=== PATIENT | female | born 1995 | race Caucasian/White ===

== ENCOUNTER 2020-01-28 18:29 | Emergency (ER) | payer OTHER ==
[2020-01-28] MEDS ORDERED: Zofran 4 MG/2 ML VIAL IV ONE (19:10)
[2020-01-28] MEDS ORDERED: TORAdol 30 mg Injection IV ONE (19:10)
--- NOTE | 2020-01-28 19:10 | ERPHSYRPT ---
- History of Present Illness Time Seen by Provider: 01/28/20 19:03 Historian: patient Exam Limitations: no limitations Patient Subjective Stated Complaint: Pt began having LRQ pain Wednesday and all day today she has felt like she needed to have a bowel movement but unsuccessful, pt sat on the toilet and instantly felt pain that went all over her abdomen but the most pain is still in the LRQ Triage Nursing Assessment: Pt drove self to the ER, tachycardic, rebound pain to RLQ, rates pain 6/10, bowel sounds heard in all 4 quadrants Physician History: Two days ago pt started with intermittent sharp RLQ abdominal pain and nausea which today has lasted for 16 hours. LBM was yesterday & soft without blood. Pt denies chest pain, shortness of air, fever, vomiting. Allergies/Adverse Reactions: No Known Drug Allergies Allergy (Verified 01/28/20 18:47) Home Medications: Levomefolate Calcium [l-Methylfolate] 15 mg PO DAILY 01/28/20 [History] Levonorgestrel-Ethin Estradiol [Falmina-28 Tablet] 1 each PO DAILY 01/28/20 [History] Palmer-3 Fatty Acids [Palmer-3] 1,000 mg PO DAILY 01/28/20 [History] Phentermine HCl [Adipex-P] 37.5 mg PO DAILY 01/28/20 [History] Topiramate 50 mg PO HS 01/28/20 [History] Venlafaxine HCl [Venlafaxine HCl ER] 150 mg PO DAILY 01/28/20 [History] Travel Risk - International Travel Have you traveled outside of the country in past 3 weeks: No - Coronavirus Screening Are you exhibiting any of the following symptoms?: No Close contact with a COVID-19 positive Pt in past 14-21 Days: No - Review of Systems Constitutional: No Fever Ears, Nose, & Throat: No Ear Pain, No Throat Pain Respiratory: No Dyspnea Cardiac: No Chest Pain Abdominal/Gastrointestinal: Abdominal Pain, Nausea, No Vomiting, No Diarrhea Skin: No Rash All Other Systems: Reviewed and Negative - Past Medical History Pertinent Past Medical History: Yes Female Reproductive Disorders: Endometriosis Other Medical History: kidney stone - Past Surgical History Past Surgical History: Yes Gastrointestinal: Cholecystectomy Female Surgical History: Section - Social History Smoking Status: Former smoker Exposure to second hand smoke: No Drug Use: none Patient Lives Alone: No - Female History Hx Last Menstrual Period: 01/10/2020 Hx Now: No - Nursing Vital Signs Nursing Vital Signs: Initial Vital Signs Temperature 98.2 F 01/28/20 18:37 Pulse Rate 104 H 01/28/20 18:37 Blood Pressure 109/79 01/28/20 18:37 O2 Sat by Pulse Oximetry 98 01/28/20 18:37 Pain Scale Pain Intensity 6 - Physical Exam General Appearance: alert Eye Exam: PERRL/EOMI Ears, Nose, Throat Exam: pharynx normal Neck Exam: normal inspection Respiratory Exam: lungs clear Cardiovascular Exam: normal heart sounds Gastrointestinal/Abdomen Exam: normal bowel sounds, tenderness (Moderate RLQ & Suprapubic tenderness.) Back Exam: normal inspection Extremity Exam: No pedal edema Neurologic Exam: alert, cooperative Skin Exam: warm, dry SpO2 Interpretation: normal SpO2: 98 O2 Delivery: Room Air - Course Nursing assessment & vital signs reviewed: Yes - CT Exams Abdomen/Pelvis CT Interpretation: Tele-radiologist Report (No evidence of acute intra-abdominal or pelvic pathology. Increased fecal retention in the rectosigmoid colon. See rest of report.) - Radiology Ultrasound Exam Pelvis Ultrasound: Other (Tech report: no ovarian torsion.) Ordered Tests: Active Orders 24 hr Category Date Time Status IV Insertion STAT Care 01/28/20 19:10 Active ABDOMEN AND PELVIS W/0 CONTRAS [CT] Stat Exams 01/28/20 19:11 Taken PELVIC [US] Stat Exams 01/28/20 20:32 Ordered AMYLASE Stat Lab 01/28/20 19:29 Completed CBC W DIFF Stat Lab 01/28/20 19:29 Completed CMP Stat Lab 01/28/20 19:29 Completed HCG QUALITATIVE,SERUM Stat Lab 01/28/20 19:29 Completed LIPASE Stat Lab 01/28/20 19:29 Completed UA W/RFX UR CULTURE Stat Lab 01/28/20 19:29 Completed Medication Summary Generic Name Dose Route Start Last Admin Trade Name Freq PRN Reason Stop Dose Admin Sodium Chloride 1,000 mls @ 100 mls/hr 01/28/20 19:15 01/28/20 19:22 Sodium Chloride 0.9% 1000 Ml IV 02/27/20 19:14 100 mls/hr .Q10H LM Administration Discontinued Medications Generic Name Dose Route Start Last Admin Trade Name Freq PRN Reason Stop Dose Admin Acetaminophen 650 mg 01/28/20 20:31 01/28/20 20:38 Tylenol 325 Mg PO 01/28/20 20:32 650 mg STAT ONE Administration Acetaminophen Confirm 01/28/20 20:37 Tylenol 325 Mg Administered 01/28/20 20:38 Dose 650 mg .ROUTE .STK-MED ONE Ketorolac Tromethamine 30 mg 01/28/20 19:10 01/28/20 19:24 Toradol 30 Mg Injection IV 01/28/20 19:11 30 mg STAT ONE Administration Ketorolac Tromethamine Confirm 01/28/20 19:18 Toradol 30 Mg Injection Administered 01/28/20 19:19 Dose 30 mg .ROUTE .STK-MED ONE Ondansetron HCl 4 mg 01/28/20 19:10 01/28/20 19:23 Zofran 4 Mg/2 Ml Vial IV 01/28/20 19:11 4 mg STAT ONE Administration Ondansetron HCl Confirm 01/28/20 19:18 Zofran 4 Mg/2 Ml Vial Administered 01/28/20 19:19 Dose 4 mg .ROUTE .STK-MED ONE Lab/Rad Data: Laboratory Result Diagrams 01/28/20 19:29 01/28/20 19:29 Laboratory Results 01/28/20 01/28/20 01/28/20 Range/Units 19:29 19:29 19:29 WBC (4.0-10.5) K/mm3 RBC (4.1-5.4) M/mm3 Hgb (12.0-16.0) gm/dl Hct (35-47) % MCV (78-100) fl MCH (26-32) pg MCHC (32-36) g/dl RDW (11.5-14.0) % Plt Count (150-450) K/mm3 MPV (7.5-11.0) fl Gran % (36.0-66.0) % Eos # (Auto) (0-0.5) Absolute Lymphs (auto) (1.0-4.6) Absolute Monos (auto) (0.0-1.3) Lymphocytes % (24.0-44.0) % Monocytes % (0.0-12.0) % Eosinophils % (0.00-5.0) % Basophils % (0.0-0.4) % Absolute Granulocytes (1.4-6.9) Basophils # (0-0.4) Sodium 137 (137-145) mmol/L Potassium 4.4 (3.5-5.1) mmol/L Chloride 108 H (98-107) mmol/L Carbon Dioxide 25 (22-30) mmol/L Anion Gap 9.3 (5-15) MEQ/L BUN 10 (7-17) mg/dL Creatinine 0.96 (0.52-1.04) mg/dL Estimated GFR > 60.0 ML/MIN Glucose 94 (74-106) mg/dL Calcium 9.3 (8.4-10.2) mg/dL Total Bilirubin 0.80 (0.2-1.3) mg/dL AST 23 (14-36) U/L ALT 14 (0-35) U/L Alkaline Phosphatase 81 (38-126) U/L Serum Total Protein 7.0 (6.3-8.2) g/dL Albumin 4.2 (3.5-5.0) g/dL Amylase 42 (30-110) U/L Lipase 51 (23-300) U/L Serum , Qual NEGATIVE (Negative) Urine Color YELLOW (YELLOW) Urine Appearance SLIGHTLY CLOUDY (CLEAR) Urine pH 6.0 (5-6) Ur Specific [place] 1.028 (1.005-1.025) Urine Protein 30 (Negative) Urine Ketones NEGATIVE (NEGATIVE) Urine Blood NEGATIVE (0-5) Charlie/ul Urine Nitrite NEGATIVE (NEGATIVE) Urine Bilirubin NEGATIVE (NEGATIVE) Urine Urobilinogen NEGATIVE (0-1) mg/dL Ur Leukocyte Esterase NEGATIVE (NEGATIVE) Urine WBC (Auto) 0-2 (0-5) /HPF Urine RBC (Auto) NONE (0-2) /HPF U Hyaline Cast (Auto) 3-5 (0-2) /LPF U Epithel Cells (Auto) RARE (FEW) /HPF Urine Bacteria (Auto) NONE SEEN (NEGATIVE) /HPF Urine Mucus (Auto) MANY (NEGATIVE) /HPF Urine Culture Reflexed NO (NO) Urine Glucose NEGATIVE (NEGATIVE) mg/dL 01/28/20 Range/Units 19:29 WBC 5.2 (4.0-10.5) K/mm3 RBC 4.38 (4.1-5.4) M/mm3 Hgb 12.7 (12.0-16.0) gm/dl Hct 39.2 (35-47) % MCV 89.5 (78-100) fl MCH 29.0 (26-32) pg MCHC 32.4 (32-36) g/dl RDW 13.7 (11.5-14.0) % Plt Count 223 (150-450) K/mm3 MPV 10.8 (7.5-11.0) fl Gran % 57.7 (36.0-66.0) % Eos # (Auto) 0.06 (0-0.5) Absolute Lymphs (auto) 1.62 (1.0-4.6) Absolute Monos (auto) 0.51 (0.0-1.3) Lymphocytes % 31.0 (24.0-44.0) % Monocytes % 9.8 (0.0-12.0) % Eosinophils % 1.1 (0.00-5.0) % Basophils % 0.4 (0.0-0.4) % Absolute Granulocytes 3.02 (1.4-6.9) Basophils # 0.02 (0-0.4) Sodium (137-145) mmol/L Potassium (3.5-5.1) mmol/L Chloride (98-107) mmol/L Carbon Dioxide (22-30) mmol/L Anion Gap (5-15) MEQ/L BUN (7-17) mg/dL Creatinine (0.52-1.04) mg/dL Estimated GFR ML/MIN Glucose (74-106) mg/dL Calcium (8.4-10.2) mg/dL Total Bilirubin (0.2-1.3) mg/dL AST (14-36) U/L ALT (0-35) U/L Alkaline Phosphatase (38-126) U/L Serum Total Protein (6.3-8.2) g/dL Albumin (3.5-5.0) g/dL Amylase (30-110) U/L Lipase (23-300) U/L Serum , Qual (Negative) Urine Color (YELLOW) Urine Appearance (CLEAR) Urine pH (5-6) Ur Specific [place] (1.005-1.025) Urine Protein (Negative) Urine Ketones (NEGATIVE) Urine Blood (0-5) Charlie/ul Urine Nitrite (NEGATIVE) Urine Bilirubin (NEGATIVE) Urine Urobilinogen (0-1) mg/dL Ur Leukocyte Esterase (NEGATIVE) Urine WBC (Auto) (0-5) /HPF Urine RBC (Auto) (0-2) /HPF U Hyaline Cast (Auto) (0-2) /LPF U Epithel Cells (Auto) (FEW) /HPF Urine Bacteria (Auto) (NEGATIVE) /HPF Urine Mucus (Auto) (NEGATIVE) /HPF Urine Culture Reflexed (NO) Urine Glucose (NEGATIVE) mg/dL - Progress Progress: unchanged Counseled pt/family regarding: lab results, rad results - Departure Departure Disposition: Home Clinical Impression: Abdominal pain, Nausea Condition: Stable Critical Care Time: No Instructions: Acute Abdomen (Belly Pain), Adult (DC) Additional Instructions: Follow up with private doctor tomorrow. Forms: Work/School Release Form
[2020-01-28] MEDS ORDERED: Sodium Chloride 0.9% 1000 ML 1,000 ML IV SCH (19:15)
[2020-01-28] MEDS ORDERED: TORAdol 30 mg Injection ONE (19:18)
[2020-01-28] MEDS ORDERED: Sodium Chloride 0.9% 1000 ML 1,000 ML ONE (19:18)
[2020-01-28] MEDS ORDERED: Zofran 4 MG/2 ML VIAL ONE (19:18)
[2020-01-28 19:36] LABS: Absolute Neutrophil Ct (ANC) 3.02 (1.4-6.9); BASOPHIL % 0.4 % (0.0-0.4); Basophil (Absolute #) 0.02 (0-0.4); Eosinophil % 1.1 % (0.00-5.0); Eosinophil (Absolute #) 0.06 (0-0.5); Hematocrit 39.2 % (35-47); Hemoglobin 12.7 gm/dl (12.0-16.0); Lymphocyte (Absolute #) 1.62 (1.0-4.6); Mean Cell Volume 89.5 fl (78-100); Mean Corpuscular Hgb Concent. 32.4 g/dl (32-36); Mean Platelet Volume 10.8 fl (7.5-11.0); Monocyte (Absolute #) 0.51 (0.0-1.3); Monocytes % 9.8 % (0.0-12.0); Neutrophil % 57.7 % (36.0-66.0); Platelet Count 223 K/mm3 (150-450); Red Blood Count 4.38 M/mm3 (4.1-5.4); Red Cell Distribution Width 13.7 % (11.5-14.0); White Blood Count 5.2 K/mm3 (4.0-10.5)
[2020-01-28 19:46] LABS: Appearance SLIGHTLY CLOUDY (CLEAR); Bacteria NONE SEEN /HPF (NEGATIVE); Bilirubin NEGATIVE (NEGATIVE); Blood NEGATIVE Ery/ul (0-5); Epithelial Cells RARE /HPF (FEW); Glucose NEGATIVE (NEGATIVE); Ketones NEGATIVE (NEGATIVE); Leukocyte Esterase NEGATIVE (NEGATIVE); Mucus MANY /HPF (NEGATIVE); Nitrite NEGATIVE (NEGATIVE); Protein,Urine Dip 30 (Negative); Specific Gravity 1.028 (1.005-1.025); Urobilinogen NEGATIVE mg/dL (0-1); WBC 0-2 /HPF (0-5)
[2020-01-28 19:50] LABS: ALBUMIN 4.2 g/dL (3.5-5.0); ALKALINE PHOSPHATASE 81 U/L (38-126); AMYLASE 42 U/L (30-110); ANION GAP 9.3 MEQ/L (5-15); BLOOD UREA NITROGEN 10 mg/dL (7-17); CHLORIDE 108 mmol/L (98-107); Calcium 9.3 mg/dL (8.4-10.2); Carbon Dioxide 25 mmol/L (22-30); Creatinine 1 0.96 mg/dL (0.52-1.04); EST GLOMERULAR FILTRATION RATE > 60.0 ML/MIN; Glucose 94 mg/dL (74-106); LIPASE 51 U/L (23-300); Potassium 4.4 mmol/L (3.5-5.1); SGOT/AST 23 U/L (14-36); SGPT/ALT 14 U/L (0-35); SODIUM 137 mmol/L (137-145)
[2020-01-28] MEDS ORDERED: TYLENOL 325 MG PO ONE (20:31)
[2020-01-28] MEDS ORDERED: TYLENOL 325 MG ONE (20:37)
[2020-01-28 22:08] VITALS: O2SAT 98
[2020-01-28 22:12] VITALS: BP 113/56; PULSE 67
--- NOTE | 2020-01-29 08:58 | XRAY ---
Indication: Bilateral flank pain. Multiple contiguous axial images obtained through the abdomen and pelvis without contrast as ordered. Comparison: None. Lung bases are clear. Heart is not enlarged. Stomach is mildly distended with food/fluid. Noncontrasted stomach and bowel loops appear nonobstructed. Normal appendix. Previous cholecystectomy. Tiny cul-de-sac free fluid presumed physiologic from rupture/leaking cyst. No free air. Incidental left-sided IVC, anatomic variant. Remaining liver, pancreas, spleen, adrenal glands, kidneys, ureters, bladder, uterus, and aorta appear unremarkable for noncontrast exam. Osseous structures intact. Impression: 1. Cul-de-sac fluid presumed physiologic. 2. Anatomic variant left-sided IVC. 3. Remaining CT abdomen/pelvis without contrast exam is negative. Comment: Preliminary interpretation was made by [facility]. No critical discrepancy.
--- NOTE | 2020-01-29 09:00 | XRAY ---
Indication: Right lower quadrant pain. History endometriosis. Two-dimensional transabdominal pelvic sonogram performed. Comparison: None Urinary bladder not adequately distended producing suboptimal acoustic window. Uterus anteverted measuring 7.1 x 4.2 x 5.5 cm. No focal solid/cystic uterine mass. Endometrial stripe measures 5.4 mm. No endometrial cavity mass or fluid collection. Right ovary measures 4.5 x 2.9 x 2.0 cm and the left measures 2.4 x 1.5 x 2.3 cm. Normal perfusion bilaterally. No suspicious adnexal mass. Tiny cul-de-sac fluid presumed physiologic from rupture/leaking cyst. Impression: Tiny physiologic cul-de-sac fluid. Remaining transabdominal pelvic sonogram is negative. The Comment: Preliminary report was given.
== END 2020-01-28 22:26 | disposition home or self-care (01) ==
LOC: ED 18:29
DX: R10.9 Unspecified abdominal pain (principal); R11.0 Nausea; Z87.442 Personal history of urinary calculi
CPT/HCPCS: 36000; 36415; 74176; 76856; 80053; 81001; 81025; 82150; 83690; 85025; 96374; 96375; 99284; J1885; J2405; A9270-GY